=== PATIENT | male | born 1950 | race Caucasian/White ===

== ENCOUNTER 2020-12-26 19:32 | Emergency (ER) | payer MEDICARE, SELFPAY ==
--- NOTE | 2020-12-26 19:51 | XR_ITS ---
PROCEDURE INFORMATION: Exam: XR Chest Exam date and time: 12/26/2020 7:51 PM Age: 70 years old Clinical indication: Cough; Prior surgery; Surgery date: 6+ months; Surgery type: Cardiac stents in place. TECHNIQUE: Imaging protocol: XR of the chest. Views: 2 views. COMPARISON: No relevant prior studies available. FINDINGS: Lungs: Unremarkable. No consolidation. Pleural spaces: Unremarkable. No pleural effusion. No pneumothorax. Heart/Mediastinum: Unremarkable. No cardiomegaly. Bones/joints: Degenerative changes of the shoulders. IMPRESSION: No acute findings.
[2020-12-26 20:03] VITALS: BP 145/98; PULSE 79; RESP 21; TEMP 37.1; O2SAT 98; BMI 23.8
--- NOTE | 2020-12-26 20:41 | HMH.EDUTC ---
[facility] Disposition Clinical Impression: Bronchitis Disposition: Home, Self-Care Condition on Discharge: Good Instructions: DI for Pleurisy, Acute Bronchitis, Ibuprofen Additional Instructions: ? Start antibiotic today. Be sure to complete entire prescription even if feeling better ? Monitor temp. Tylenol every 4 hours as needed and / or ibuprofen every 6 hours as needed ( As long as your primary care physician has told you that it ok to take both. For fever/aches/pains ER if no less than 101 despite Tylenol or Motrin ? Humidifier/vaporizer or hot steamy shower ? Mucinex during the day for your cough and cough suppressant only at night. Be sure to drink lots of water. Insurance may not cover a prescriptions for mucinex. Might be cheaper to get 400mg tablets and take 2 tablet in the morning, mid-day and evening with lots of water. Follow up IMMEDIATELY for new or worsening of symptoms OR no noticeable improvement over the next 48-72 hours. 911 immediately for any life threatening symptoms such as chest pain or difficulty breathing Prescriptions: Azithromycin [Z-Tuan 250mg Tab] 250 mg PO DIRECTED #6 tab Prescription Printed Referrals: Sera Pope APRN [Primary Care Provider] - As needed Time of Disposition: 20:54 Medical Decision Making - [place] Inquiry Pt receiving controlled substance: No [place] was queried for this patient: No Vital Signs: 12/26/20 20:03 Temperature 98.8 F Temperature Source Oral Pulse Rate [Right Radial] 79 Respiratory Rate 21 Blood Pressure [Right Arm] 145/98 H Blood Pressure Mean [Right Arm] 113 Blood Pressure Source [Right Arm] Automatic Cuff Blood Pressure Position [Right Arm] Sitting 02 Sat by Pulse Oximetry 98 Oxygen Delivery Method Room Air - Radiology Data #1 Image(s): Chest Image Reviewed: Yes I have reviewed radiologist's interpretation IMPRESSION: No acute findings. [facility] HPI - General Stated complaint: possible pneumonia Time Seen by Provider: 12/26/20 20:42 Mode of Arrival: Ambulatory Source of Information: Patient Limitations: No Limitations Description of Symptoms (Recalled from Triage Doc. by RN): C/O pain in back and chest, cough x2 weeks HEENT Symptoms (Recalled from RN notes): No Resp Symptoms (Recalled from RN notes): Yes (cough, pain in back and chest) Skin Symptoms (Recalled from RN notes): No MS Symptoms (Recalled from RN notes): No Functional Status (Recalled from RN notes): n/a - History of Present Illness Provider Complaint: Patient states that he has been having a cough for about 2 weeks and having some drainage in the back of his throat and earlier he started coughing up some mucous States that he seen someone last week and was given some steriods and it helped some but still pain at times in his back when he coughs and having congestion in his chest worried he may have bronchitis or pneumonia and wanted to get checked - Related Data Previous Rx's Medication Instructions Recorded Azithromycin [Z-Tuan 250mg Tab] 250 mg PO DIRECTED #6 tab 12/26/20 Allergies Allergy/AdvReac Type Severity Reaction Status Date / Time No Known Allergies Allergy Unverified 03/09/17 15:26 - Worker's Comp Is this a Worker's Comp case?: No [facility] History - Hepatitis A Screen Drug use history?: No High risk sexual behaviors?: No History of sexually transmitted infection?: No Currently employed?: No Childcare worker?: No Do you have indoor plumbing?: Yes Do you have electricity?: Yes Attestation statement:: This patient has been screened for Hepatitis A risk factors. I have reviewed the patient's past medical history: Yes ROS Obtained: Yes All systems reviewed & no additional complaints, Yes Systems reviewed as appropriate & no additional complaints - Constitutional Constitutional: Reports system reviewed and no additional complaints, except as docu, Reports body ache, Reports chills, Denies fever(s), Denies headache(s) - ENT
[2020-12-26 21:06] VITALS: BP 145/98; PULSE 79; RESP 21; TEMP 37.1; O2SAT 98
== END 2020-12-26 21:07 | disposition home or self-care (01) ==
PROVIDERS: Emergency Provider Nurse Practitioner; PCP Nurse Practitioner
DX: J40 Bronchitis, not specified as acute or chronic (principal)
CPT/HCPCS: 71046; 99202; G0463